=== PATIENT | male | born 1995 | race Caucasian/White ===

== ENCOUNTER 2023-12-06 21:54 | Emergency (ER) | payer OTHER, SELFPAY ==
--- NOTE | ~2023-12-06 | CT_ITS ---
EXAMINATION: CTA chest PE protocol DATE: 12/06/2023 23:58 INDICATION: Chest pain. Shortness of breath. TECHNIQUE: Computed tomography angiography (CTA) of the chest was performed with 100 mL Omnipaque-350 intravenous contrast timed to evaluate the pulmonary arteries. Coronal maximum intensity projection 3D-reconstructions were created by the technologist. Automated exposure control and iterative reconst ruction technique were employed. The dose-length product was 785.09 mGy-cm. COMPARISON: None. FINDINGS: The lungs demonstrate minimal atelectasis. No pleural effusion. The heart size is normal. N o pericardial effusion. There is no pulmonary embolus. There is moderate thoracic spondylosis. There is mild chronic anterior wedging of multiple vertebral bodies. IMPRESSION: 1. No pulmonary embolus. Reviewed, dictated and finalized at location E. IMPRESSION: 1. No pulmonary embolus.
--- NOTE | ~2023-12-06 | XR_ITS ---
EXAMINATION: XR chest 1V portable DATE: 12/06/2023 22:16 INDICATION: Chest pain. TECHNIQUE: A single frontal view of the chest was obtained. COMPARISON: None. FINDINGS: There is no pneumonia, pleural effusion, or pneumothorax. The heart size is normal. IMPRESSION: 1. No acute cardiopulmonary disease. Reviewed, dictated and finalized at location E.
--- NOTE | 2023-12-06 21:56 | ECG_ITS ---
SEE SCANNED COPY FOR CONFIRMED REPORT MTDD
[2023-12-06 22:02] VITALS: BP 157/96; PULSE 115; RESP 24; TEMP 36.7; O2SAT 100
[2023-12-06] MEDS: ASPIRIN 81 MG CHEWABLE TABLET 324 MG PO (22:19)
[2023-12-06 22:27] LABS: Basophils Percent Auto 0.8 % (0.2-1.2); Eosinophils Absolute Auto 0.2 K/mm3 (0-0.3); Eosinophils Percent Auto 2.9 % (0-4.4); Hematocrit 41.3 % (42.0-52.0); Hemoglobin 13.9 g/dL (14.0-18.0); Immature Granulocyte Absolute 0.02 K/mm3 (0.00-0.031); Immature Granulocyte Percent A 0.4 % (0-0.5); Lymphocytes Absolute Auto 1.93 K/mm3 (0.9-3.2); Lymphocytes Percent Auto 37.2 % (18.3-44.2); Mean Corpuscular HGB Conc 33.7 g/dl (32-36); Mean Corpuscular Hemoglobin 29.8 pg (26-34); Mean Corpuscular Volume 88.6 fl (80-100); Mean Platelet Volume 11.2 fl (7.4-10.4); Monocytes Absolute Auto 0.6 K/mm3 (0.1-0.6); Neutrophils Absolute Auto 2.5 K/mm3 (1.3-6.7); Neutrophils Percent Auto 47.7 % (45.5-73.1); Platelet Count Result 151 k/mm3 (150-375); Red Blood Count 4.66 M/mm3 (4.6-6.20); Red Cell Distribution Width 12.8 % (11.5-14.5); White Blood Count 5.2 K/mm3 (4.5-10.0)
[2023-12-06 22:37] LABS: Alanine Aminotransferase 43 U/L (6-50); Albumin Level 4.6 g/dL (3.5-5.1); Alkaline Phosphatase 90 U/L (38-126); Anion Gap 9 mmol/L (4-12); Aspartate Amino Transferase 31 U/L (17-59); Bilirubin,Total 0.6 mg/dL (0.2-1.3); Blood Urea Nitrogen 15 mg/dL (9-20); Calcium 9.1 mg/dL (8.4-10.2); Carbon Dioxide 22 mmol/L (22-30); Chloride 107 mmol/L (98-107); Estimated CRCL calculation 102 ml/min; Estimated Glomerular Filt Rate > 60; Glucose 156 mg/dL (65-110); Lipase 98 U/L (23-300); Potassium 3.7 mmol/L (3.4-5.0); Sodium 138 mmol/L (137-145)
[2023-12-06 22:39] LABS: Partial Thromboplastin Time 28.7 Seconds (22.3-36.8)
[2023-12-06 22:48] LABS: Troponin I < 0.012 ng/mL (0.000-0.034)
[2023-12-06 23:06] VITALS: BP 136/87; PULSE 107; RESP 23; O2SAT 100
--- NOTE | 2023-12-06 23:11 | ECG_ITS ---
SEE SCANNED COPY FOR CONFIRMED REPORT MTDD
--- NOTE | 2023-12-06 23:12 | ED.CHESTPAIN ---
HPI - Chest Pain General Chief Complaint: Chest Pain Stated Complaint: chest pain, heart racing Time Seen by Provider: 12/06/23 22:27 Source: patient Limitations: no limitations History of Present Illness HPI narrative: Patient is a 27-year-old male presents to the emergency department complaining of chest discomfort. Patient states around 10:00 p.m. tonight he was resting watching television when he developed left-sided chest discomfort, feels like a heaviness, no his wrist in the past, admits to associated shortness of breath, overall constant, has not noticed any making it better or worse, has not tried anything for. Patient denies history of blood clots or unilateral lower extremity swelling. Patient denies recent injuries or recent illness. Patient denies cough, fever, bloody bowel movements, diaphoresis, numbness, weakness. Patient admits to some associated palpitations. Patient denies family history of heart disease at a young age. Patient denies history of hypertension or hyperlipidemia or diabetes. Patient denies being a smoker. Related Data Allergies Allergy/AdvReac Type Severity Reaction Status Date / Time No Known Allergies Allergy Mild Verified 12/06/23 22:07 Review of Systems Review of Systems: All systems reviewed & are unremarkable except as noted in HPI and below PMFSH Family History Family History (Updated 07/16/10 @ 14:12 by DOCTOR UNKNOWN) Other Family history of arthritis Social History Social History Alcohol intake: never Comments At time of signature, I have reviewed and agree with nursing past medical, surgical, social and family history unless otherwise noted. Please see the nursing chart for further information. There is no relevant family history pertinent to the presenting complaint. Exam Narrative: CONST: No acute distress. Well nourished. HENMT: Head is normocephalic and atraumatic. Moist mucous membranes. No posterior oropharynx erythema. EYES: No conjunctival icterus, injection, or pallor. PERRL. NECK: No meningeal signs. No JVD. RESP: Able to speak in full sentences. Normal respiratory effort. CTAB. CARDIO: Tachycardic rate. Regular rhythm. 2+ DP and radial pulses bilaterally. GI: Nondistended. No tenderness to palpation. Soft. : No CVA tenderness to palpation. SKIN: No rashes or lesions noted on exposed skin. NEURO: Oriented x3. Moves all extremities. EXTREM/MSK/BACK: No pedal edema. PSYCH: Normal affect. Course Vital Signs Vital signs: Vital Signs Temperature 98.1 F 12/06/23 22:02 Pulse Rate 115 H 12/06/23 22:02 Respiratory Rate 24 H 12/06/23 22:02 Blood Pressure 157/96 H 12/06/23 22:02 Pulse Oximetry 100 12/06/23 22:02 Oxygen Delivery Room Air 12/06/23 22:02 Temperature 98.1 F 12/06/23 22:02 Pulse Rate 100 12/07/23 02:11 Respiratory Rate 23 H 12/07/23 02:11 Blood Pressure 151/98 H 12/07/23 00:43 Pulse Oximetry 100 12/07/23 02:11 Oxygen Delivery Room Air 12/06/23 22:06 MDM - Chest Pain MDM Narrative Medical decision making narrative: Patient presents with the above complaint. Initial vitals are remarkable for tachycardia and tachypnea. Physical examination as noted above. Plan discussed: Laboratory analysis, EKG, CT of the chest, chest x-ray, IV fluids, aspirin. Differential diagnosis includes was not limited to ACS, pneumonia, pneumothorax, pulmonary embolism. Patient was reassessed multiple times throughout ED stay and remained feeling well, no longer tachycardic, appearing in no acute distress. Counseled patient regarding diagnostic results and potential diagnosis. Anticipatory guidance provided. Patient instructed to follow up with PCP within the next 2-3 days. Patient counseled on: false reassurance from an emergency department evaluation; no current evidence of a medical emergency; return immediately for any new, recurrent, worsening, concerning, or refractory symptoms. Patient prescribed ty
[2023-12-06] MEDS: SODIUM CHLORIDE 0.9% IV 1,000 ML 999 ML IV CONT (23:15)
[2023-12-06 23:54] LABS: NT Pro B Type Natriuretic Pept < 20 pg/mL (19.9-100)
[2023-12-06 23:56] LABS: D Dimer < 0.27 ug/mL (<0.48)
[2023-12-07] MEDS: LORazepam INJ (*CRX) 2 MG/ML VIAL 0.5 MG IV PUSH (00:36)
[2023-12-07 00:43] VITALS: BP 151/98; PULSE 116; RESP 18; O2SAT 99
[2023-12-07 01:19] LABS: Troponin I < 0.012 ng/mL (0.000-0.034)
[2023-12-07 02:11] VITALS: PULSE 100; RESP 23; O2SAT 100
[2023-12-07 04:46] LABS: Troponin I < 0.012 ng/mL (0.000-0.034)
[2023-12-07 05:01] LABS: Influenza A QL RT-PCR Negative (Negative); Influenza B QL RT-PCR Negative (Negative); SARS-CoV-2 RNA PCR Negative (Negative)
[2023-12-07 05:11] VITALS: BP 169/89; PULSE 79; RESP 20; O2SAT 100
== END 2023-12-07 05:13 | disposition home or self-care (01) ==
PROVIDERS: Emergency Provider Student in an Organized Health Care Education/Training Program
DX: R07.9 Chest pain, unspecified (principal); R00.0 Tachycardia, unspecified; Z20.822 Contact with and (suspected) exposure to COVID-19
CPT/HCPCS: 36415; 71045; 71275; 80053; 83690; 83735; 83880; 84443; 84484; 85025; 85380; 85610; 85730; 87636; 93005; 96361; 96374; 99284; A9270; J2060; J7030; Q9967